=== PATIENT | female | born 1990 | race Native Hawaiian/Other Pacific Islander ===

== ENCOUNTER 2021-03-06 12:01 | Emergency (ER) | payer SELFPAY ==
--- NOTE | 2021-03-06 13:52 | XRay Report ---
CHEST 2 VIEWS INDICATION / CLINICAL INFORMATION: productive cough. COMPARISON: 07/08/2016 FINDINGS: SUPPORT DEVICES: None. HEART / MEDIASTINUM: No significant abnormality. LUNGS / PLEURA: No significant pulmonary or pleural abnormality. No pneumothorax. ADDITIONAL FINDINGS: No significant additional findings. IMPRESSION: 1. No acute findings. Signer Name: Monster Orourke MD Signed: 03/06/2021 1:47 PM Workstation Name: [id number]
--- NOTE | 2021-03-06 14:10 | Emergency Department Report ---
ED General Adult HPI - General Chief complaint: Upper Respiratory Infection Stated complaint: COUGH Time Seen by Provider: 03/06/21 12:29 Source: patient Mode of arrival: Ambulatory Limitations: No Limitations - History of Present Illness Initial comments: 31-year-old female patient presents with complaints of cough x1 week worsening over the past few days along with tactile fever. She denies any loss of taste or smell. She states she has not had COVID-19 testing and is not vaccinated against COVID-19. She admits to mild streaks of blood in her mucus today, however she states she has a history of gingivitis and she believes it is due to this. No c hest pain or shortness of breath per patient. She also denies any hormone use, leg pain/swelling, recent long travel/surgeries, or history of DVT/PE/cancer. No other past medical history per patient. Severity scale (0 -10): 0 - Related Data Previous Rx's Medication Instructions Recorded Last Taken Type Cyclobenzaprine HCl [Flexeril 5 MG 5 mg PO Q8HR PRN #12 tab 07/08/16 Unknown Rx TAB] Ibuprofen [Motrin] 800 mg PO Q8HR PRN #14 tablet 07/08/16 Unknown Rx Benzonatate 200 mg PO TID PRN #30 capsule 03/06/21 Unknown Rx Loratadine [Claritin] 10 mg PO QDAY #10 tablet 03/06/21 Unknown Rx Allergies Allergy/AdvReac Type Severity Reaction Status Date / Time No Known Allergies Allergy Unverified 07/08/16 10:41 ED Review of Systems ROS: Stated complaint: COUGH Other details as noted in HPI Constitutional: denies: chills, fever, weakness Respiratory: cough. denies: shortness of breath Cardiovascular: denies: chest pain Gastrointestinal: denies: abdominal pain Skin: denies: rash ED Past Medical Hx - Social History Smoking Status: Never Smoker Substance Use Type: None - Medications Home Medications: Home Medications Medication Instructions Recorded Confirmed Last Taken Type Cyclobenzaprine HCl [Flexeril 5 MG 5 mg PO Q8HR PRN #12 tab 07/08/16 Unknown Rx TAB] Ibuprofen [Motrin] 800 mg PO Q8HR PRN #14 tablet 07/08/16 Unknown Rx Benzonatate 200 mg PO TID PRN #30 capsule 03/06/21 Unknown Rx Loratadine [Claritin] 10 mg PO QDAY #10 tablet 03/06/21 Unknown Rx ED Physical Exam - General Limitations: No Limitations General appearance: alert, in no apparent distress - Head Head exam: Present: atraumatic, normocephalic - Eye Eye exam: Present: normal appearance. Absent: scleral icterus - Neck Neck exam: Present: normal inspection - Respiratory Respiratory exam: Present: normal lung sounds bilaterally. Absent: respiratory distress - Cardiovascular Cardiovascular Exam: Present: regular rate, normal rhythm. Absent: systolic murmur, diastolic murmur, rubs, gallop - GI/Abdominal GI/Abdominal exam: Present: soft. Absent: tenderness - Neurological Exam Neurological exam: Present: alert, oriented X3 - Psychiatric Psychiatric exam: Present: normal affect, normal mood - Skin Skin exam: Present: warm, dry, intact, normal color. Absent: rash ED Course Vital Signs 03/06/21 03/06/21 03/06/21 12:05 12:59 16:11 Temperature 98.3 F 97.5 F L 97.9 F Pulse Rate 120 H 77 78 Respiratory 18 16 16 Rate Blood Pressure 123/78 111/69 122/75 [Right] O2 Sat by Pulse 100 99 99 Oximetry ED Medical Decision Making - Lab Data Result diagrams: 03/06/21 14:59 03/06/21 14:59 Lab Results 03/06/21 03/06/21 03/06/21 Range/Units 14:59 14:59 14:59 WBC 11.0 (4.5-11.0) K/mm3 RBC 4.61 (3.65-5.03) M/mm3 Hgb 11.3 (10.1-14.3) gm/dl Hct 36.5 (30.3-42.9) % MCV 79 (79-97) fl MCH 25 L (28-32) pg MCHC 31 (30-34) % RDW 15.7 H (13.2-15.2) % Plt Count 352 (140-440) K/mm3 Lymph % (Auto) 16.5 (13.4-35.0) % Republic % (Auto) 8.6 H (0.0-7.3) % Eos % (Auto) 0.9 (0.0-4.3) % Baso % (Auto) 0.3 (0.0-1.8) % Lymph # (Auto) 1.8 (1.2-5.4) K/mm3 Republic # (Auto) 1.0 H (0.0-0.8) K/mm3 Eos # (Auto) 0.1 (0.0-0.4) K/mm3 Baso # (Auto) 0.0 (0.0-0.1) K/mm3 Seg Neutrophils % 73.7 H (40.0-70.0) % Seg Neutrophils # 8.1 H (1.8-7.7) K/mm3 D-Dimer 280.27 H (0-234) ng/mlDDU Sodium 138 (137-145) mmol/L Potassium 4.1 (3.6-5.0) mmol/L Chloride 100.8 (98-107) mmol/L Carbon Dioxide 21 L (22-30) mmol/L Anion Gap 20 mmol/L BUN 10 (7-17) mg/dL Creatinine 0.4 L (0.6-1.2) mg/dL Estimated GFR > 60 ml/min BUN/Creatinine Ratio 25 % Glucose 77 (65-100) mg/dL Calcium 10.3 H (8.4-10.2) mg/dL Total Bilirubin 0.30 (0.1-1.2) mg/dL AST 31 (5-40) units/L ALT 23 (7-56) units/L Alkaline Phosphatase 68 (35-129) units/L Total Protein 9.0 H (6.3-8.2) g/dL Albumin 4.6 (3.9-5) g/dL Albumin/Globulin Ratio 1.0 % HCG, Qual (Negative) 03/06/21 Range/Units 14:59 WBC (4.5-11.0) K/mm3 RBC (3.65-5.03) M/mm3 Hgb (10.1-14.3) gm/dl Hct (30.3-42.9) % MCV (79-97) fl MCH (28-32) pg MCHC (30-34) % RDW (13.2-15.2) % Plt Count (140-440) K/mm3 Lymph % (Auto) (13.4-35.0) % Republic % (Auto) (0.0-7.3) % Eos % (Auto) (0.0-4.3) % Baso % (Auto) (0.0-1.8) % Lymph # (Auto) (1.2-5.4) K/mm3 Republic # (Auto) (0.0-0.8) K/mm3 Eos # (Auto) (0.0-0.4) K/mm3 Baso # (Auto) (0.0-0.1) K/mm3 Seg Neutrophils % (40.0-70.0) % Seg Neutrophils # (1.8-7.7) K/mm3 D-Dimer (0-234) ng/mlDDU Sodium (137-145) mmol/L Potassium (3.6-5.0) mmol/L Chloride (98-107) mmol/L Carbon Dioxide (22-30) mmol/L Anion Gap mmol/L BUN (7-17) mg/dL Creatinine (0.6-1.2) mg/dL Estimated GFR ml/min BUN/Creatinine Ratio % Glucose (65-100) mg/dL Calcium (8.4-10.2) mg/dL Total Bilirubin (0.1-1.2) mg/dL AST (5-40) units/L ALT (7-56) units/L Alkaline Phosphatase (35-129) units/L Total Protein (6.3-8.2) g/dL Albumin (3.9-5) g/dL Albumin/Globulin Ratio % HCG, Qual Negative (Negative) - Radiology Data Radiology results: report reviewed CHEST 2 VIEWS INDICATION / CLINICAL INFORMATION: productive cough. COMPARISON: 07/08/2016 FINDINGS: SUPPORT DEVICES: None. HEART / MEDIASTINUM: No significant abnormality. LUNGS / PLEURA: No significant pulmonary or pleural abnormality. No pneumothorax. ADDITIONAL FINDINGS: No significant additional findings. IMPRESSION: 1. No acute findings. CTA CHEST WITH IV CONTRAST INDICATION: cough, +dimer 100 ML OMNI 350. TECHNIQUE: Axial CT images were obtained through the chest after injection of 100 cc IV contrast. 3 plane MIP reconstructions were produced. All CT scans at this location are performed using CT dose reduction for ALARA by means of automated exposure control. COMPARISON: None available. FINDINGS: Limited by moderate respiratory motion artifact. PULMONARY ARTERIES: No pulmonary emboli. THORACIC AORTA: No acute abnormality. HEART: Normal. CORONARY ARTERIES: No significant calcification. PLEURA: No pleural effusion. No pneumothorax. LYMPH NODES: No significant adenopathy. LUNGS: No acute air space or interstitial disease. ADDITIONAL FINDINGS: None. UPPER ABDOMEN: No acute findings. SKELETAL STRUCTURES: No significant osseous abnormality. IMPRESSION: 1. No CT evidence for pulmonary embolism. 2. No acute findings. - Medical Decision Making 31-year-old female patient presents with complaints of cough x1 week worsening over the past few days along with tactile fever. She denies any loss of taste or smell. She states she has not had COVID-19 testing and is not vaccinated against COVID-19. She admits to mild streaks of blood in her mucus today, however she states she has a history of gingivitis and she believes it is due to this. No chest pain or shortness of breath per patient. She also denies any hormone use, leg pain/swelling, recent long travel/surgeries, or history of DVT/PE/cancer. No other past medical history per patient. Lung exam is clear. PERC score is positive given heart rate of 120. Dimer m ildly positive. CTA chest is negative for any acute abnormalities including infection and PE. Will treat for viral respiratory tract infection conservatively. Heart rate is now normal and patient is afebrile with a normal pulse ox on room air. Recommend outpatient COVID-19 testing and self quarantine until results are back. Patient to follow-up with PCP within 3 to 5 days. Discussed in detail signs and symptoms that should prompt immediate return to the ED with patient verbalizes understanding. Critical care attestation.: If time is entered above; I have spent that time in minutes in the direct care of this critically ill patient, excluding procedure time. ED Disposition Clinical Impression: Cough Disposition: 01 HOME / SELF CARE / HOMELESS Is pt being admited?: No Condition: Stable Instructions: Cough, Adult, Viral Respiratory Infection Additional Instructions: Please have outpatient testing for COVID-19 within the next 24 to 48 hours and self quarantine until you are further instructed. Prescriptions: Benzonatate 200 mg PO TID PRN #30 capsule PRN Reason: Cough Loratadine [Claritin] 10 mg PO QDAY #10 tablet Referrals: [facility] [Provider Group] - 3-5 Days Forms: Work/School Release Form(ED)
[2021-03-06 15:35] LABS: Basophils % (Auto) 0.3 % (0.0-1.8); Eosinophils # (Auto) 0.1 K/mm3 (0.0-0.4); Eosinophils % (Auto) 0.9 % (0.0-4.3); Hematocrit 36.5 % (30.3-42.9); Hemoglobin 11.3 gm/dl (10.1-14.3); Lymphocytes # (Auto) 1.8 K/mm3 (1.2-5.4); Lymphocytes % (Auto) 16.5 % (13.4-35.0); Mean Corpuscular HGB Conc 31 % (30-34); Mean Corpuscular Volume 79 fl (79-97); Monocytes % (Auto) 8.6 % (0.0-7.3); Platelet Count 352 K/mm3 (140-440); Red Blood Count 4.61 M/mm3 (3.65-5.03); Red Cell Distribution Width 15.7 % (13.2-15.2)
[2021-03-06] MEDS ORDERED: BENZONATATE 100 MG CAP PO ONE (15:43)
[2021-03-06 16:12] VITALS: BP 122/75
[2021-03-06 16:15] LABS: Alanine Aminotransferase 23 units/L (7-56); Albumin 4.6 g/dL (3.9-5); Blood Urea Nitrogen 10 mg/dL (7-17); Calcium 10.3 mg/dL (8.4-10.2); Hemolysis Index 5
[2021-03-06 16:16] LABS: BUN/Creatinine Ratio 25
--- NOTE | 2021-03-06 18:01 | Cat Scan Report ---
CTA CHEST WITH IV CONTRAST INDICATION: cough, +dimer 100 ML OMNI 350. TECHNIQUE: Axial CT images were obtained through the chest after injection of 100 cc IV contrast. 3 plane MIP re constructions were produced. All CT scans at this location are performed using CT dose reduction for ALARA by means of automated exposure control. COMPARISON: None available. FINDINGS: Limited by moderate respiratory motion artifact. PULMONARY ARTERIES: No pulmonary emboli. THORACIC AORTA: No acute abnormality. HEART: Normal. CORONARY ARTERIES: No significant calcification. PLEURA: No pleural effusion. No pneumothorax. LYMPH NODES: No significant adenopathy. LUNGS: No acute air space or interstitial disease. ADDITIONAL FINDINGS: None. UPPER ABDOMEN: No acute findings. SKELETAL STRUCTURES: No significant osseous abnormality. IMPRESSION: 1. No CT evidence for pulmonary embolism. 2. No acute findings. Signer Name: Patrick Addison MD Signed: 03/06/2021 5:56 PM Workstation Name: [id number]
== END 2021-03-06 19:36 | disposition home or self-care (01) ==
LOC: ED 12:01
DX: R05.9 Cough, unspecified (principal); Z79.899 Other long term (current) drug therapy
CPT/HCPCS: 36415; 71046; 71275; 80053; 84703; 85025; 85379; 99284; Q9967